=== PATIENT | male | born 1985 | race African-American/Black ===

== ENCOUNTER 2018-02-19 16:16 | Emergency (ER) | payer OTHER ==
[~2018-02-19] VITALS: Ht 190.5 cm; Wt 106.6 kg
[2018-02-19 16:35] VITALS: BP 152/102
[2018-02-19] MEDS ORDERED: LIDOCAINE 1% HCL (LOCAL ANESTH.) INJ 20ML MDV ID ONE (20:15)
[2018-02-19] MEDS ORDERED: TETANUS-DIPTH-ACEL PERTUSSIS 0.5ML SYRG IM ONE (20:15)
[2018-02-19] MEDS ORDERED: cefTRIAXone SOD 1,000 MG VL IM ONE (20:15)
[2018-02-19] MEDS ORDERED: BACITRACIN TOP OINT 1 UD PKG TOP ONE (21:45)
[2018-02-19] MEDS ORDERED: IBUPROFEN 800 MG TAB PO ONE (22:00)
== END 2018-02-19 21:54 | disposition home or self-care (01) ==
LOC: ER 16:26
DX: S62.634A Displaced fracture of distal phalanx of right ring finger, initial encounter for closed fracture (principal); S61.314A Laceration without foreign body of right ring finger with damage to nail, initial encounter; W26.8XXA Contact with other sharp object(s), not elsewhere classified, initial encounter; Y93.89 Activity, other specified; Y92.89 Other specified places as the place of occurrence of the external cause; Y99.8 Other external cause status
CPT/HCPCS: 12002; 29130; 73140; 90471; 90715; 96372; 99284; J0696; J2001